=== PATIENT | male | born 1985 | race Caucasian/White ===

== ENCOUNTER 2023-04-25 20:46 | Observation (INO) | payer OTHER ==
[2023-04-25] MEDS ORDERED: SODIUM CHLORIDE 0.9% 1,000 ML IV ONE (21:35)
[2023-04-25 21:58] LABS: Basophils % (A) 0 %; Eosinophils % (A) 0 %; HCT 42.4 % (39.0-53.0); HGB 14.9 gm/dL (13.0-17.5); Lymphocytes % (A) 10 %; MCH 31.5 pg (25.0-35.0); MCHC 35.2 g/dL (31.0-37.0); MCV 89.5 fL (80.0-100.0); Mean Platelet Volume 7.8; Monocytes # (A) 0.4 k/uL (0-1.0); Monocytes % (A) 4 %; Neutrophils # (A) 8.9 k/uL (1.3-7.7); Neutrophils % (A) 85 %; Platelet Count 229 k/uL (150-450); RBC 4.73 m/uL (4.30-5.90); RDW 11.8 % (11.5-15.5); WBC 10.5 k/uL (3.8-10.6)
--- NOTE | 2023-04-25 22:06 | XR ---
EXAMINATION TYPE: XR chest 2V DATE OF EXAM: 04/25/2023 9:50 PM COMPARISON: None TECHNIQUE: XR chest 2V Frontal and lateral views of the chest. CLINICAL INDICATION:Male, 38 years old with history of Dizziness; FINDINGS: Lungs/Pleura: There is no evidence of pleural effusion, focal consolidation, or pneumothorax. Pulmonary vascularity: Unremarkable. Heart/mediastinum: Cardiomediastinal silhouette is unremarkable. Musculoskeletal: No acute osseous pathology. IMPRESSION: No acute cardiopulmonary disease/process.
[2023-04-25 22:08] LABS: ALT 30 U/L (4-49); AST 27 U/L (17-59); African American GFR (CKD) >90 (>60 ml/min/1.73 sqM); Albumin 4.1 g/dL (3.5-5.0); Alkaline Phosphatase 83 U/L (38-126); Anion Gap 10 mmol/L; Blood Urea Nitrogen 10 mg/dL (9-20); Calcium 9.2 mg/dL (8.4-10.2); Carbon Dioxide 20 mmol/L (22-30); Chloride 105 mmol/L (98-107); Glucose 100 mg/dL (74-99); Lipase 77 U/L (23-300); Magnesium 1.6 mg/dL (1.6-2.3); Non-African American GFR(CKD) >90 (>60 ml/min/1.73 sqM); Potassium 3.8 mmol/L (3.5-5.1); Sodium 135 mmol/L (137-145); Total Bilirubin 1.5 mg/dL (0.2-1.3); Total Protein 7.3 g/dL (6.3-8.2)
[2023-04-25 22:11] LABS: Partial Thromboplastin Time 22.9 sec (22.0-30.0); Prothrombin Time 10.8 sec (9.0-12.0)
--- NOTE | 2023-04-25 22:21 | ED ---
General Adult HPI - General Chief complaint: Syncope Stated complaint: Numbness, Tingling, Vomiting Time Seen by Provider: 04/25/23 21:16 Source: EMS Mode of arrival: EMS Limitations: no limitations - History of Present Illness Initial comments: This is a 38-year-old male with no past medical history presents emergency department for intermittent numbness and tingling of all of his extremities. The patient stated that throughout the day today he experienced episodes where he had numbness and tingling in his left arm and then transferred to the right [facility]. The patient stated that he also had associated dizziness with room spinning. The patient stated that when he lays flat he doesn't any symptoms. The patient stated he has never had any issues like this before but did state that when he first had the symptoms, he had a strong urge to defecate and with strong urge to urinate. The patient was able to do so but had continued symptoms. Due to the patient's continued symptoms and intermittent numbness and tingling that goes down the back of his head, the patient wanted to be evaluated. The patient denied any other complaints at this time. The patient also stated that he denied any numbness or tingling presently on evaluation. - Related Data Allergies Allergy/AdvReac Type Severity Reaction Status Date / Time No Known Allergies Allergy Verified 04/25/23 21:44 Review of Systems ROS Statement: Those systems with pertinent positive or pertinent negative responses have been documented in the HPI. ROS Other: All systems not noted in ROS Statement are negative. General Exam Limitations: no limitations General appearance: alert, in no apparent distress, anxious Head exam: Present: atraumatic, normocephalic, normal inspection Eye exam: Present: normal appearance, PERRL Pupils: Present: normal accommodation ENT exam: Present: normal exam, normal oropharynx, mucous membranes moist Neck exam: Present: normal inspection, full ROM Respiratory exam: Present: normal lung sounds bilaterally Cardiovascular Exam: Present: regular rate, normal rhythm, normal heart sounds GI/Abdominal exam: Present: soft, normal bowel sounds Extremities exam: Present: normal inspection, full ROM Back exam: Present: normal inspection, full ROM Neurological exam: Present: alert, oriented X3, CN II-XII intact Psychiatric exam: Present: normal affect, normal mood Skin exam: Present: warm, dry Course Vital Signs 04/25/23 04/26/23 20:49 00:01 Temperature 98.3 F Pulse Rate 82 Pulse Rate [ 70 Sitting] Pulse Rate [ 85 Standing] Pulse Rate [ 74 Supine Pulse Oximetery] Respiratory 20 16 Rate Blood Pressure 137/93 Blood Pressure 125/82 [Left Arm Sitting] Blood Pressure 120/82 [Left Arm Standing] Blood Pressure 124/84 [Left Arm Supine] O2 Sat by Pulse 100 100 Oximetry EKG Findings - EKG Comments: EKG Findings:: An EKG was obtained and was interpreted by myself showing a rate of 67, ND interval of 165, QRS duration 105 and QTC of 432. This EKG showed a normal sinus rhythm with no ST segment elevation or depression noted. Medical Decision Making - Medical Decision Making Was pt. sent in by a medical professional or institution (, PA, HELP DESK ASSOCIATE, urgent care, hospital, or fci...) When possible be specific @ -No Did you speak to anyone other than the patient for history (EMS, parent, family, police, friend...)? What history was obtained from this source @ -No Did you review nursing and triage notes (agree or disagree)? Why? @ -I reviewed and agree with nursing and triage notes Were old charts reviewed (outside hosp., previous admission, EMS record, old EKG, old radiological studies, urgent care reports/EKG's, fci records)? Report findings @ -No old charts were reviewed Differential Diagnosis (chest pain, altered mental status, abdominal pain women, abdominal pain men, vaginal bleeding, weakness, fever, dyspnea, syncope, headache, dizziness, GI bleed, back pain, seizure, CVA, palpatations, mental health)? @ -Intracranial hemorrhage, intracranial mass, dehydration EKG interpreted by me (3pts min.). @ -As above X-rays interpreted by me (1pt min.). @ -Chest x-ray was obtained and was interpreted by myself showing no acute process. CT interpreted by me (1pt min.). @ -CT head was obtained and was interpreted by myself showing no acute process. CTA of the head and neck was also obtained and was interpreted by myself showing no active disease or process. There was no stenosis or blockage noted. U/S interpreted by me (1pt. min.). @ -None done What testing was considered but not performed or refused? (CT, X-rays, U/S, labs)? Why? @ -None What meds were considered but not given or refused? Why? @ -None Did you discuss the management of the patient with other professionals (professionals i.e. , PA, HELP DESK ASSOCIATE, lab, RT, psych nurse, social sciences lecturer, butt welder, teacher, crime prevention police officer, housing case manager)? Give summary @ -Yes, admitting physician was contacted regarding patient admission. Was smoking cessation discussed for >3mins.? @ -No Was critical care preformed (if so, how long)? @ -No Were there social determinants of health that impacted care today? How? (Homelessness, low income, unemployed, alcoholism, drug addiction, t ransportation, low edu. Level, literacy, decrease access to med. care, residential, rehab)? @ -No Was there de-escalation of care discussed even if they declined (Discuss DNR or withdrawal of care, Hospice)? DNR status @ -No What co-morbidities impacted this encounter? (DM, HTN, Smoking, COPD, CAD, Cancer, CVA, ARF, Chemo, Hep., AIDS, mental health diagnosis, sleep apnea, morbid obesity)? @ -None Was patient admitted / discharged? Hospital course, mention meds given and route, prescriptions, significant lab abnormalities, going to OR and other pertinent info. @ -The patient was seen and evaluated in emergency department. Physical exam, the patient was resting in bed without any acute distress. Vital signs admission were stable. Due to the nature the patient's complaint, abdomen workup as well as imaging was obtained. All workup was negative and within normal limits. Orthostatic vital signs were obtained and were also within normal limits however the patient reported continued dizziness with movement. Due to the patient's persistent dizziness and the history of presenting illness, the patient will be placed in observation to be seen and evaluated by neurology as he felt unsafe to go home. The patient was agreeable to this and was placed in observation in stable condition. Undiagnosed new problem with uncertain prognosis? @ -No Drug Therapy requiring intensive monitoring for toxicity (Heparin, Nitro, Insulin, Cardizem)? @ -No Were any procedures done? @ -No Diagnosis/symptom? @ -Dizziness, persistent Acute, or Chronic, or Acute on Chronic? @ -Acute Uncomplicated (without systemic symptoms) or Complicated (systemic symptoms)? @ -Complicated Side effects of treatment? @ -No Exacerbation, Progression, or Severe Exacerbation? @ -No Poses a threat to life or bodily function? How? (Chest pain, [place], [place], pneumonia, PE, COPD, DKA, ARF, appy, cholecystitis, CVA, Diverticulitis, Homicidal, Suicidal, threat to staff... and all critical care pts) @ -No - Lab Data Result diagrams: 04/25/23 21:43 04/25/23 21:43 Lab Results 04/25/23 04/25/23 04/25/23 Range/Units 21:43 21:43 21:43 WBC 10.5 (3.8-10.6) k/uL RBC 4.73 (4.30-5.90) m/uL Hgb 14.9 (13.0-17.5) gm/dL Hct 42.4 (39.0-53.0) % MCV 89.5 (80.0-100.0) fL MCH 31.5 (25.0-35.0) pg MCHC 35.2 (31.0-37.0) g/dL RDW 11.8 (11.5-15.5) % Plt Count 229 (150-450) k/uL MPV 7.8 Neutrophils % 85 % Lymphocytes % 10 % Monocytes % 4 % Eosinophils % 0 % Basophils % 0 % Neutrophils # 8.9 H (1.3-7.7) k/uL Lymphocytes # 1.0 (1.0-4.8) k/uL Monocytes # 0.4 (0-1.0) k/uL Eosinophils # 0.0 (0-0.7) k/uL Basophils # 0.0 (0-0.2) k/uL PT 10.8 (9.0-12.0) sec INR 1.0 (<1.2) APTT 22.9 (22.0-30.0) sec Sodium 135 L (137-145) mmol/L Potassium 3.8 (3.5-5.1) mmol/L Chloride 105 (98-107) mmol/L Carbon Dioxide 20 L (22-30) mmol/L Anion Gap 10 mmol/L BUN 10 (9-20) mg/dL Creatinine 0.58 L (0.66-1.25) mg/dL Est GFR (CKD-EPI)AfAm >90 (>60 ml/min/1.73 sqM) Est GFR (CKD-EPI)NonAf >90 (>60 ml/min/1.73 sqM) Glucose 100 H (74-99) mg/dL Calcium 9.2 (8.4-10.2) mg/dL Magnesium 1.6 (1.6-2.3) mg/dL Total Bilirubin 1.5 H (0.2-1.3) mg/dL AST 27 (17-59) U/L ALT 30 (4-49) U/L Alkaline Phosphatase 83 (38-126) U/L Troponin I (0.000-0.034) ng/mL Total Protein 7.3 (6.3-8.2) g/dL Albumin 4.1 (3.5-5.0) g/dL Lipase 77 (23-300) U/L Influenza Type A (PCR) (Not Detectd) Influenza Type B (PCR) (Not Detectd) RSV (PCR) (Not Detectd) SARS-CoV-2 (PCR) (Not Detectd) 04/25/23 04/25/23 Range/Units 21:43 21:43 WBC (3.8-10.6) k/uL RBC (4.30-5.90) m/uL Hgb (13.0-17.5) gm/dL Hct (39.0-53.0) % MCV (80.0-100.0) fL MCH (25.0-35.0) pg MCHC (31.0-37.0) g/dL RDW (11.5-15.5) % Plt Count (150-450) k/uL MPV Neutrophils % % Lymphocytes % % Monocytes % % Eosinophils % % Basophils % % Neutrophils # (1.3-7.7) k/uL Lymphocytes # (1.0-4.8) k/uL Monocytes # (0-1.0) k/uL Eosinophils # (0-0.7) k/uL Basophils # (0-0.2) k/uL PT (9.0-12.0) sec INR (<1.2) APTT (22.0-30.0) sec Sodium (137-145) mmol/L Potassium (3.5-5.1) mmol/L Chloride (98-107) mmol/L Carbon Dioxide (22-30) mmol/L Anion Gap mmol/L BUN (9-20) mg/dL Creatinine (0.66-1.25) mg/dL Est GFR (CKD-EPI)AfAm (>60 ml/min/1.73 sqM) Est GFR (CKD-EPI)NonAf (>60 ml/min/1.73 sqM) Glucose (74-99) mg/dL Calcium (8.4-10.2) mg/dL Magnesium (1.6-2.3) mg/dL Total Bilirubin (0.2-1.3) mg/dL AST (17-59) U/L ALT (4-49) U/L Alkaline Phosphatase (38-126) U/L Troponin I <0.012 (0.000-0.034) ng/mL Total Protein (6.3-8.2) g/dL Albumin (3.5-5.0) g/dL Lipase (23-300) U/L Influenza Type A (PCR) Not Detected (Not Detectd) Influenza Type B (PCR) Not Detected (Not Detectd) RSV (PCR) Not Detected (Not Detectd) SARS-CoV-2 (PCR) Not Detected (Not Detectd) Disposition Clinical Impression: Dizziness Disposition: ADMITTED IP TO THIS [facility] Condition: Stable Is patient prescribed a controlled substance at d/c from ED?: No Referrals: None,Stated [Primary Care Provider] - 1-2 days Time of Disposition: 23:00 Decision to Admit Reason: Admit from EC Decision Date: 04/25/23 Decision Time: 23:00
--- NOTE | 2023-04-25 22:45 | CT ---
EXAMINATION TYPE: CT angio head neck CT DLP: 1775 mGycm, Automated exposure control for dose reduction was used. DATE OF EXAM: 04/25/2023 10:13 PM COMPARISON: CT brain same day. CLINICAL INDICATION:Male, 38 years old with history of Dizziness with int numbness/tingling; PHH, TECHNIQUE: Axially acquired helical CT angiogram of the head and neck was obtained with contrast. Axi al images are supplemented with 3D reconstructions which [facility] NASCET criteria used. Contrast used: None Oral contrast used: None. FINDINGS: CTA HEAD: No evidence of acute intracranial hemorrhage, mass effect, or midline shift. The ventricles, sulci, a nd cisterns are unremarkable. Mild paranasal sinus mucosal thickening worse in the left maxillary sin us. The visualized portions of the internal carotid arteries, middle cerebral arteries, anterior cerebral arteries, and posterior cerebral arteries are patent. The basilar and vertebral arteries are patent. CTA NECK: Right Carotid System: The common carotid artery and external carotid artery are patent. The carotid bifurcation demonstrate s no evidence of hemodynamically significant stenosis. The remaining portions of the internal carotid artery demonstrate normal size without significant narrowing. Left Carotid System: The common carotid artery and external carotid artery are patent. The carotid bifurcation demonstrate s no evidence of hemodynamically significant stenosis. The remaining portions of the internal carotid artery demonstrate normal size without significant narrowing. Vertebral arteries are patent without evidence hemodynamically significant stenosis. There is a three-vessel aortic arch. The origins of the great vessels are patent. No evidence of hemo dynamically significant stenosis. IMPRESSION: 1. No evidence of dissection of the cervical internal carotid arteries or vertebral arteries or any e vidence of significant stenosis at the carotid bifurcations. 2. No evidence of intracranial high-grade stenosis or intracranial aneurysm.
--- NOTE | 2023-04-25 22:46 | CT ---
EXAMINATION TYPE: CT brain wo con CT DLP: 1775 mGycm, Automated exposure control for dose reduction was used. DATE OF EXAM: 04/25/2023 10:11 PM COMPARISON: CTA same day. CLINICAL INDICATION:Male, 38 years old with history of Dizziness with int numbness/tingling, TECHNIQUE: Brain: Axial CT images of the brain were obtained with coronal and sagittal reformats created and rev iewed. Contrast used: None. Oral contrast used: None. FINDINGS: Brain: Extra-axial spaces: No abnormal extra-axial fluid collections. Ventricular system: Within normal limits Cerebral parenchyma: No acute intraparenchymal hemorrhage or mass effect. The soto-white junction is well differentiated. Cerebellum: Unremarkable. Mass effect: No evidence of midline shift. Intracranial vasculature: unremarkable Soft tissues: Normal. Calvarium/osseous structures: No depressed skull fracture. Paranasal sinuses and mastoid air cells: Mild scattered paranasal sinus disease. Visualized orbits: Orbital contents are intact. IMPRESSION: No acute intracranial process.
[2023-04-26] MEDS ORDERED: NALOXONE 0.4 MG/ML 1 ML VIAL IV PRN ×2 (01:54→09:33)
[2023-04-26] MEDS ORDERED: MAG HYDROX/AL HYDROX/SIMETH 30 ML CUP PO PRN (09:33)
[2023-04-26] MEDS ORDERED: MELATONIN 3 MG TABLET PO PRN (09:33)
[2023-04-26] MEDS ORDERED: ACETAMINOPHEN TAB 325 MG TAB PO PRN (09:33)
[2023-04-26] MEDS ORDERED: ONDANSETRON 4 MG/2 ML VIAL IVP PRN (09:33)
[2023-04-26] MEDS: MECLIZINE 12.5 MG TAB PO PRN ×2 (10:30→20:56)
--- NOTE | 2023-04-26 13:05 | P.HPIM ---
History of Present Illness H&P Date: 04/26/23 History of present illness; patient is a 38-year-old gentleman with no significa nt past medical history presented to the ER because of generalized numbness of all extremities. Patient stated that he was all right yesterday when he started experiencing tingling and numbness initially started in the left arm and then transferred to the other arm. Patient denied any slurred speech or any weakness of any extremity at that time. There was no complain of any facial droop. Patient did notice it at the beginning of the symptoms he had strong urge to defecate and urinate but could not do so. Patient was also complaining of the feeling of room spinning around him. There was no complain of any hearing problems.. No complain of any difficulty in ambulation. This feeling of numbness later spread to involve his neck and back of the head. Because of his symptoms, patient came to the ER Initial lab work done in the ER showed WBC 10.5, hemoglobin 14.9, platelet count 229, sodium 138, potassium 3.8, BUN 10, creatinine 0.58, glucose 100 total bilirubin 1.5 Influenza A and B- RSV negative COVID-[address] brain done showed no acute intracranial process CTA head and neck showed no evidence of any dissection of the internal carotid arteries or vertebral arteries or any significant stenosis EKG done in the ER showed a medical rate 67, QRS 105, no ST segment elevation, no T-wave inversions seen patient admitted to medicine service REVIEW OF SYSTEMS: CONSTITUTIONAL: No fever, no malaise, no fatigue. HEENT: No recent visual problems or hearing problems. Denied any sore throat. CARDIOVASCULAR: No chest pain, orthopnea, PND, no palpitations, no syncope. PULMONARY: No shortness of breath, no cough, no hemoptysis. GASTROINTESTINAL: No diarrhea, no nausea, no vomiting, no abdominal pain. NEUROLOGICAL: Mentioned in HPI HEMATOLOGICAL: Denies any bleeding or petechiae. GENITOURINARY: Denies any burning micturition, frequency, or urgency. MUSCULOSKELETAL/RHEUMATOLOGICAL: Denies any joint pain, swelling, or any muscle pain. ENDOCRINE: Denies any polyuria or polydipsia. The rest of the 14-point review of systems is negative. PHYSICAL EXAMINATION: GENERAL: The patient is alert and oriented x3, not in any acute distress. Well developed, well nourished. HEENT: Pupils are round and equally reacting to light. EOMI. No scleral icterus. No conjunctival pallor. Normocephalic, atraumatic. No pharyngeal erythema. No thyromegaly. CARDIOVASCULAR: S1 and S2 present. No murmurs, rubs, or gallops. PULMONARY: Chest is clear to auscultation, no wheezing or crackles. ABDOMEN: Soft, nontender, nondistended, normoactive bowel sounds. No palpable organomegaly. MUSCULOSKELETAL: No joint swelling or deformity. EXTREMITIES: No cyanosis, clubbing, or pedal edema. NEUROLOGICAL: Gross neurological examination did not reveal any focal deficits. SKIN: No rashes. Assessment and plan Dizziness Numbness of upper extremities Monitor vital signs Monitor CBC Monitor CMP Continue telemetry monitoring Check orthostatics Added Antivert Continue neuro checks Consult neurology Labs and medication were reviewed.. Continue same treatment. Continue with symptomatic treatment. Resume home medication. Monitor labs and vitals. DVT and GI prophylaxis. Further recommendations as per clinical course of the patient Dictation was produced using [employer] dictation software. please excuse any grammatical, word or spelling errors. Past Medical History Past Medical History: GERD/Reflux Additional Past Medical History / Comment(s): IBS, broken tooth on bottom right History of Any Multi-Drug Resistant Organisms: None Reported Additional Past Surgical History / Comment(s): right arm sx from a fx. Past Anesthesia/Blood Transfusion Reactions: No Reported Reaction Past Psychological History: ADD/ADHD, Depression Smoking Status: Never smoker Past Alcohol Use History: Rare Past Drug Use History: Marijuana - Past Family History Father Family Medical History: Cancer Additional Family Medical History / Comment(s): panreatic cancer. at age 68 Mother Family Medical History: CVA/TIA Additional Family Medical History / Comment(s): heart valve replaced. Medications and Allergies Home Medications Medication Instructions Recorded Confirmed Type No Known Home Medications 04/26/23 04/26/23 History Allergies Allergy/AdvReac Type Severity Reaction Status Date / Time No Known Allergies Allergy Verified 04/26/23 11:53 Physical Exam Vitals: Vital Signs Temp Pulse Pulse Pulse Pulse Resp BP 04/26/23 07:00 97.9 F 65 75 70 18 04/26/23 02:43 98.1 F 66 16 04/26/23 02:19 66 18 133/84 08/20/23 00:01 70 85 74 16 04/25/23 20:49 98.3 F 82 20 137/93 BP BP BP BP Pulse Ox 04/26/23 07:00 111/75 118/82 106/70 98 04/26/23 02:43 119/75 100 04/26/23 02:19 99 04/26/23 00:01 125/82 120/82 124/84 100 04/25/23 20:49 100 Intake and Output 04/25/23 04/26/23 04/26/23 22:59 06:59 14:59 Intake Total 240 Balance 240 Intake: Oral 240 Other: # Voids 1 Weight 90.718 kg 90.718 kg Results CBC & Chem 7: 04/25/23 21:43 04/25/23 21:43 Labs: Abnormal Lab Results - Last 24 Hours (Table) 04/25/23 04/25/23 Range/Units 21:43 21:43 Neutrophils # 8.9 H (1.3-7.7) k/uL Sodium 135 L (137-145) mmol/L Carbon Dioxide 20 L (22-30) mmol/L Creatinine 0.58 L (0.66-1.25) mg/dL Glucose 100 H (74-99) mg/dL Total Bilirubin 1.5 H (0.2-1.3) mg/dL Thrombosis Risk Factor Assmnt - Choose All That Apply Any of the Below Risk Factors Present?: No Other Risk Factors: No Other congenital or acquired thrombophilia - If yes, enter type in comment: No Thrombosis Risk Factor Assessment Level: Very Low Risk
[2023-04-26 21:46] VITALS: RESP 16
--- NOTE | 2023-04-26 23:32 | P.CNNES ---
History of Present Illness Consult date: 04/26/23 Requesting physician: Shilo Isaac Reason for Consult: Persistent dizziness History of Present Illness: Patient is a 38-year-old male came to the hospital by ambulance yesterday at 8:46 PM for dizziness. Patient states that he woke up at 9:30 AM, and tried to get up and felt dizzy. He wanted to use the bathroom. He fought dizziness, sat up on the side of the bed. As he started to move, and put his feet on the side of the bed, he rushed to the bathroom. While he was going, he had a loose stools, that went through his pants. He sat in the toilet, and sat there, and vomited. He came back, lanette Orozco. Fell asleep at around 4 PM and woke up at around 6:30 AM when he noticed a funny, numb sensation in his fingers in the right foot felt numb. Also noted numbness involving the back of the head, which wrapped around the ears. At that time he had trouble breathing, felt like he has "ran a mile". He also noticed numbness around his mid abdomen almost like a belt, pointing to the T9, T10 dermatomes anteriorly. He called the ambulance. Patient says that he vomited twice at home in the bedroom, once in the bathroom and once in the ambulance. He has not had any more vomiting since he arrived to the hospital. As per EMS flow sheet, when they arrived, patient was seated outside of his apartment on the curb. Patient was alert and oriented 4, with GCS of 15, appearing distress and diaphoretic complaining of chest pain and numbness in bilateral upper extremities. EKG showed no abnormalities. Patient reported waking up this morning around 9 AM, experiencing nausea vomiting dizziness and having numbness and tingling in hands. Patient then went into his bathroom and while vomiting difficulty did on himself. Patient reports the symptoms resolved after several hours. But the symptoms returned in the afternoon around 4:30 PM with increasing severe at the of numbness and tingling. Patient complained of chest pressure that spans horizontally across his abdomen and then upwards towards his left shoulder. Patient complained of "passed out while on the couch". Patient woke up at around 8 PM and still experiencing the same symptoms therefore called 911. Denies ever having similar symptoms in the past. No previous medical history. Patient denied slurred speech facial droop abnormal strength or visual changes. Since then at least stroke scale was negative. Patient was given aspirin. Also Zofran by the tar boiler. Patient's blood pressure was 155/93, pulse rate 104, respiration 24, saturation 100% and blood sugar 125. Patient was brought to the hospital. Vital signs on arrival blood pressure 137/93, pulse rate 82 temperature 98.3. Orthostatics were checked and were negative with supine blood pressure 124/84, pulse rate 74, sitting 125/82, pulse 70 and standing 120/82 and 85 respectively. Blood test shows normal CBC, PT/PTT, normal CMP, negative troponin, lipase. Influenza screen, RSV and coronal virus PCR negative. CT head showed no acute intracranial process. I personally reviewed CT head, agree with the findings. Patient denies any abdominal pain, fever or chills. Patient states that the seatbelt-type numbness on the abdomen lasted for about 5-6 hours, whereas numbness and tingling in the fingers and right foot lasted for couple hours, and the back of the head for about 45 minutes. At present he has no numbness tingling except for dizziness. When he is laying down, he is almost normal, with very minimal dizziness. However when he lifts his head up, the dizziness gets worse, sitting even more worse. When he rolls over to the bed to the right or left side, he feels dizzy or any turns his head [id number]. He notices some clicking in the back of the head. Patient also mentions that he had significant tooth ache involving the right bottom tooth for about 2 days prior to onset of the symptoms. However since the symptoms started, the tooth ache has resolved. Patient denies any tobacco use, alcohol, occasional marijuana. Review of Systems Constitutional: Reports chills, Reports fatigue, Reports sweats, Denies fever Eyes: bilateral photophobia, denies blurred vision, denies diplopia, denies pain, denies loss of vision, denies tunnel vision/blind spots Ears: deny: decreased hearing, ear discharge, tinnitus (Clicking in back of the head) Ears, nose, mouth and throat: Reports vertigo (Like self spinning), Denies headache, Denies sore throat Cardiovascular: Reports lightheadedness, Reports shortness of breath, Denies chest pain Respiratory: Denies cough, Denies excessive sputum Gastrointestinal: Reports diarrhea, Reports nausea, Reports vomiting, Denies abdominal pain Genitourinary: Denies incontinence, Denies urinary hesitancy Musculoskeletal: Denies low back pain, Denies myalgias, Denies neck pain Integumentary: Denies pruritus, Denies rash Neurological: Reports as per HPI Psychiatric: Denies anxiety, Denies depression Endocrine: Denies fatigue, Denies weight change Hematologic/Lymphatic: Denies easy bleeding, Denies easy bruising Past Medical History Past Medical History: GERD/Reflux Additional Past Medical History / Comment(s): IBS, broken tooth on bottom right History of Any Multi-Drug Resistant Organisms: None Reported Additional Past Surgical History / Comment(s): right arm sx from a fx. Past Anesthesia/Blood Transfusion Reactions: No Reported Reaction Past Psychological History: ADD/ADHD, Depression Smoking Status: Never smoker Past Alcohol Use History: Rare Past Drug Use History: Marijuana - Past Family History Father Family Medical History: Cancer Additional Family Medical History / Comment(s): panreatic cancer. at age 68 Mother Family Medical History: CVA/TIA Additional Family Medical History / Comment(s): heart valve replaced. Medications and Allergies Home Medications Medication Instructions Recorded Confirmed Type No Known Home Medications 04/26/23 04/26/23 History Allergies Allergy/AdvReac Type Severity Reaction Status Date / Time No Known Allergies Allergy Verified 04/26/23 11:53 Physical Examination - Vital Signs Vital Signs: Vital Signs Temp Pulse Pulse Pulse Pulse Resp BP 04/26/23 07:00 97.9 F 65 75 70 18 04/26/23 02:43 98.1 F 66 16 04/26/23 02:19 66 18 133/84 04/26/23 00:01 70 85 74 16 04/25/23 20:49 98.3 F 82 20 137/93 BP BP BP BP Pulse Ox 04/26/23 07:00 111/75 118/82 106/70 98 04/26/23 02:43 119/75 100 04/26/23 02:19 99 04/26/23 00:01 125/82 120/82 124/84 100 04/25/23 20:49 100 Intake and Output 04/25/23 04/26/23 04/26/23 22:59 06:59 14:59 Intake Total 240 Balance 240 Intake: Oral 240 Other: # Voids 1 Weight 90.718 kg 90.718 kg Patient is a young male, very pleasant in no acute distress. Patient is alert awake oriented to time place and person. Speech and language functions are normal. Patient can name and repeat very well. No aphasia or dysarthria. Attention, concentration and fund of knowledge is adequate. On cranial nerve examination, pupils are equal, round and reacting to light, visual henao are full on confrontation, with no neglect on double simultaneous stimulation. Extraocular muscles are intact with no nystagmus. Face is symmetric, tongue protrudes to the midline. Palatal elevation and sensation normal, hearing and shoulder shrug normal, facial sensation normal. On muscle strength testing, there is no pronator drift and the strength is normal in arms and legs distally and proximally. Deep tendon reflexes are symmetric 1+ at the biceps, 1+ brachioradialis, 2 at the knees, 2 ankles and plantars downgoing bilaterally. Sensory to touch is equal with no neglect on double simultaneous stimulation. Cerebellar function showed no ataxia for [id number] testing. No dysdiadochokinesia. No ataxia for ygda-[id number]-thok testing on either side. Rapid finger tapping are normal. Tone and bulk of muscles normal. Gait deferred.. On general examination, there is no carotid bruit or murmur, S1-S2 audible. Chest is clear on consultation. Abdomen is soft nontender. No organomegaly, bowel sounds present. Peripheral pulses are present. No edema. Results - Laboratory Findings CBC and BMP: 04/25/23 21:43 04/25/23 21:43 Abnormal Lab Findings: Abnormal Labs 04/25/23 04/25/23 21:43 21:43 Neutrophils # 8.9 H Sodium 135 L Carbon Dioxide 20 L Creatinine 0.58 L Glucose 100 H Total Bilirubin 1.5 H Assessment and Plan Assessment: * Acute onset of dizziness, vertigo, nausea vomiting and one episode of watery diarrhea. Suspect viral infection. His neurological examination is completely nonfocal. Probable viral labyrinthitis. * Transient episode of numbness involving back of the head extending to the ears, fingers of both hands, right foot and anterior abdominal region in T9- T10 dermatomes, appears neuritis, which could be viral related, or related to dehydration/electrolytes imbalance from frequent vomiting and diarrhea. Plan: * Patient's computed tomography scan of the head is normal. CTA of head and neck revealed no evidence of dissection of the cervical internal carotid arteries or vertebral arteries or any evidence of significant stenosis at the carotid bifurcations. No evidence of intracranial high-grade stenosis or intracranial aneurysm. * Current neurologic examination is normal. * Patient's paresthesias has resolved. However he continues to feel dizziness, spinning, likely from labyrinthitis. It usually takes 2-4 days up to a week for symptoms to resolve. * Continue meclizine as needed. * Observe overnight. If remains neurologically stable, then may discharge. Discussed with primary physician. * Thank you for the consult.
[2023-04-27 10:08] VITALS: BP 115/75; PULSE 57; TEMP 97.6
[2023-04-27] MEDS ORDERED: predniSONE 20 MG TAB PO STA (10:28)
[2023-04-27] MEDS ORDERED: MAGNESIUM SULFATE-D5W PMX 1 GM in DEXTROSE/WATER 1 100ML.BAG IVPB ONE (10:45)
[2023-04-27] MEDS ORDERED: FAMOTIDINE 20 MG TAB PO SCH (10:45)
--- NOTE | 2023-04-27 11:24 | P.DS ---
Providers Date of admission: 04/26/23 01:56 Attending physician: Wil Ramirez MD Consults: 04/26/23 01:54 Consult Physician Routine Consulting Provider: Claudette Conner Consult Reason/Comments: Persistent dizziness Do you want consulting provider notified?: Yes, Notify in am Primary care physician: Stated None Hospital Course: 38-year-old admitted for vertigo underwent brain CT and CT angiography of head and neck all of which are negative. Neurology evaluated the patient patient was diagnosed with labyrinthitis patient had symptoms of a viral gastroenteritis. Patient's symptoms improved slightly expected to last for about a week. Patient is being discharged on meclizine and Medrol Dosepak with the GI prophylaxis with Pepcid. PHYSICAL EXAMINATION: GENERAL: The patient is alert and oriented x3, not in any acute distress. Well developed, well nourished. HEENT: Pupils are round and equally reacting to light. EOMI. No scleral icterus. No conjunctival pallor. Normocephalic, atraumatic. No pharyngeal erythema. No thyromegaly. CARDIOVASCULAR: S1 and S2 present. No murmurs, rubs, or gallops. PULMONARY: Chest is clear to auscultation, no wheezing or crackles. ABDOMEN: Soft, nontender, nondistended, normoactive bowel sounds. No palpable organomegaly. MUSCULOSKELETAL: No joint swelling or deformity. EXTREMITIES: No cyanosis, clubbing, or pedal edema. NEUROLOGICAL: Gross neurological examination did not reveal any focal deficits. SKIN: No rashes. Assessment and plan: Labyrinthitis viral etiology Viral gastroenteritis Patient Condition at Discharge: Stable Plan - Discharge Summary Discharge Rx Participant: No New Discharge Prescriptions: New Meclizine [Antivert] 25 mg PO TID PRN #30 tab PRN Reason: Vertigo Famotidine [Pepcid] 20 mg PO DAILY #7 tablet methylPREDNISolone Dose Pack [Medrol Dose Pack] 4 mg PO DIRECTED #1 packet Discharge Medication List Famotidine [Pepcid] 20 mg PO DAILY #7 tablet 04/27/23 [Rx] Meclizine [Antivert] 25 mg PO TID PRN #30 tab 04/27/23 [Rx] methylPREDNISolone Dose Pack [Medrol Dose Pack] 4 mg PO DIRECTED #1 packet 04/27/23 [Rx] Follow up Appointment(s)/Referral(s): Clark Koch MD [REFERRING] - 3 Days None,Stated [Primary Care Provider] - 1-2 days Discharge Disposition: HOME SELF-CARE
--- NOTE | 2023-04-27 14:53 | P.PN ---
Subjective Progress Note Date: 04/27/23 Patient was seen for a follow-up. Patient states that he is still slightly dizzy, but much better than yesterday. Still balance off while walking. He is able to turn without much being dizzy. Denies any numbness or tingling or any focal symptoms. No residual numbness. Patient does admit to having stuffy nose on the left nostril. Denies any significant sinus drainage. No yellow or green drainage from the sinuses. Objective - Vital Signs Vital signs: Vital Signs Temp 97.6 F 04/27/23 07:00 Pulse 57 L 04/27/23 07:00 Resp 16 04/27/23 07:00 BP 115/75 04/27/23 07:00 Pulse Ox 98 04/27/23 07:00 FiO2 Intake & Output 04/26/23 04/27/23 04/27/23 18:59 06:59 18:59 Intake Total 720 118 Balance 720 118 Intake: Oral 720 118 Other: # Voids 1 2 - Exam Patient's mental status, speech and language functions are normal. Cranial nerves are normal. Muscle strength is normal. No ataxia for [id number] or [id number] testing bilaterally. Sensory touch is equal with no neglect. Patient able to walk, was somewhat unsteady, would veer to one or the other side. Patient still able to walk on his heels toes and tandem. - Labs CBC & Chem 7: 04/25/23 21:43 04/25/23 21:43 Assessment and Plan Assessment: * Acute onset of dizziness, vertigo, nausea vomiting and one episode of watery diarrhea. Suspect viral infection. His neurological examination is completely nonfocal. Probable viral labyrinthitis. * Transient episode of numbness involving back of the head extending to the ears, fingers of both hands, right foot and anterior abdominal region in T9- T10 dermatomes, appears neuritis, which could be related to acute viral infection, or related to dehydration/electrolytes imbalance from frequent vomiting and diarrhea. * Left maxillary and bilateral ethmoid sinus congestion noted on CT head. Patient does have stuffy nose on the left for some time. Does not appear bacterial, either ALLERGIC or viral. Plan: * Patient's computed tomography scan of the head is normal. On my review, there is evidence of significant mucosal thickening/congestion of the left maxillary sinus, and opacification of some bilateral ethmoid air cells. Patient denies any significant nasal drainage, fever or chills or significant headache. Appears viral, or ALLERGIC. Discussed with primary physician, does not need antibiotic. Patient received Medrol Dosepak. * CTA of head and neck revealed no evidence of dissection of the cervical internal carotid arteries or vertebral arteries or any evidence of significant stenosis at the carotid bifurcations. No evidence of intracranial high-grade stenosis or intracranial aneurysm. * Current neurologic examination is normal. * Patient's paresthesias has resolved. * Continue meclizine as needed, increase dose to 25 mg 3 times a day when necessary. * Neurologically clear for discharge. Discussed with primary physician.
== END 2023-04-27 14:36 | disposition home or self-care (01) ==
LOC: EC 20:46 → 6NMEDSUR 04-26 01:56
PROVIDERS: ADMIT Internal Medicine; ATTEND Internal Medicine
DX: H83.09 Labyrinthitis, unspecified ear (principal); B97.89 Other viral agents as the cause of diseases classified elsewhere; A08.4 Viral intestinal infection, unspecified; R20.0 Anesthesia of skin; J30.9 Allergic rhinitis, unspecified; K21.9 Gastro-esophageal reflux disease without esophagitis; K58.9 Irritable bowel syndrome, unspecified; F32.A Depression, unspecified; F90.9 Attention-deficit hyperactivity disorder, unspecified type; R93.0 Abnormal findings on diagnostic imaging of skull and head, not elsewhere classified; Z20.822 Contact with and (suspected) exposure to COVID-19
CPT/HCPCS: 99285; 36415; 93005; 85379; 80053; 83690; 83735; 84484 ×2; 85025; 85610; 85730; 87636; 71046; 70496; 70450; 70498; G0378 ×2; J3475; J7512; Q9967